=== PATIENT | male | born 1970 | race Caucasian/White ===

== ENCOUNTER 2025-01-12 06:11 | Emergency (ER) | payer MEDICAID ==
[~2025-01-12] VITALS: Ht 175.3 cm; Wt 93.6 kg
[2025-01-12] MEDS ORDERED: SODIUM CHLORIDE 0.9% 100 ML ONE (06:23)
[2025-01-12] MEDS ORDERED: IOHEXOL 350 MG/ML 100 ML VIAL ONE (06:23)
[2025-01-12 06:25] VITALS: TEMP 97.9
[2025-01-12] MEDS: MORPHINE SULFATE 2 MG/ML SYRINGE IVP ONE (06:34)
[2025-01-12] MEDS: PROPARACAINE HCL 0.5% 15 ML OPHTHALMIC SOLUTION OU ONE (06:38)
[2025-01-12] MEDS: FLUORESCEIN SODIUM 1 MG STRIP OU ONE (06:43)
[2025-01-12 06:50] LABS: PLATELET COUNT (AUTO) 205 K/uL (150-450); RED BLOOD CELL COUNT(AUTO) 4.14 MIL/uL (4.50-5.90); RED CELL DISTRIBUTION WIDTH 13.6 % (11.5-14.5); WHITE BLOOD COUNT (AUTO) 7.1 K/uL (4.5-11.0)
[2025-01-12 06:53] LABS: CALCIUM, TOTAL 8.7 mg/dL (8.8-10.5); CREATININE 0.86 mg/dL (0.60-1.30); GLOMERULAR FILTR. RATE CALC > 60 mL/min (>60); GLUCOSE,RANDOM 93 mg/dL (70-110); SODIUM SERUM 144 mmol/L (136-145); UREA NITROGEN, BLOOD 16 mg/dL (7-18)
[2025-01-12 06:58] LABS: ASPARTATE AMINOTRANSFERASE 27.0 U/L (15-37); TOTAL PROTEIN, SERUM 6.3 g/dL (6.4-8.2)
[2025-01-12] MEDS ORDERED: OFLO5DRO49 OD (07:59)
[2025-01-12 08:00] VITALS: BP 147/89; PULSE 71; RESP 16; O2SAT 98
[2025-01-12] MEDS: KETOROLAC TROMETHAMINE 30 MG/ML VIAL IVP ONE (08:07)
[2025-01-12] MEDS: OFLOXACIN 0.3% 5 ML OPHTHALMIC SOLUTION OD ONE (08:07)
== END 2025-01-12 08:56 | disposition home or self-care (01) ==
LOC: EMS 06:13
DX: S05.01XA Injury of conjunctiva and corneal abrasion without foreign body, right eye, initial encounter (principal); Z90.49 Acquired absence of other specified parts of digestive tract; Z98.890 Other specified postprocedural states; X58.XXXA Exposure to other specified factors, initial encounter; Y93.89 Activity, other specified; Y92.89 Other specified places as the place of occurrence of the external cause; Y99.8 Other external cause status
CPT/HCPCS: 99285; 70450; 96374; 80048; 80076; 85025; 36415; 70481; J1885; Q9967; J7050